=== PATIENT | male | born 1975 | race Caucasian/White ===

== ENCOUNTER → 2024-07-05 08:42 | Outpatient (REF) | payer BC, SELFPAY | LOC: MRI 3T 08:42 | DX: R51.9 Headache, unspecified (principal) | CPT/HCPCS: 70553; A9575 ==

== ENCOUNTER → 2025-06-01 11:49 | Outpatient (REF) | payer BC, SELFPAY | LOC: RAD 11:49 | DX: M79.672 Pain in left foot (principal) | CPT/HCPCS: 73630 ==